=== PATIENT | male | born 1985 | race African-American/Black ===

== ENCOUNTER 2022-07-01 21:27 | Emergency (ER) | payer MEDICAID ==
[~2022-07-01] VITALS: Ht 195.6 cm; Wt 171.9 kg
[2022-07-01 21:59] VITALS: BP 160/102
--- NOTE | 2022-07-02 05:09 | NUR ---
Patient taken to bed 12.
--- NOTE | 2022-07-02 05:17 | NUR ---
Dr. Hussein examining patient.
[2022-07-02] MEDS ORDERED: KETOROLAC 30 MG/ML VIAL IM ONE (05:20)
[2022-07-02] MEDS ORDERED: diazePAM 5 MG TAB PO ONE (05:20)
--- NOTE | 2022-07-02 05:37 | NUR ---
PT TAKEN TO CT
[2022-07-02] MEDS ORDERED: NAPR-54 PO (07:35)
[2022-07-02] MEDS ORDERED: AMOX1TAB8 PO (07:35)
[2022-07-02] MEDS ORDERED: NYST15CR10 TP (07:40)
[2022-07-02 08:41] VITALS: BP 152/91
--- NOTE | 2022-07-02 08:44 | NUR ---
Patient discharged with v/s stable. Written and verbal after care instructions given and explained. Patient alert, oriented and verbalized understanding of instructions. Ambulatory with steady gait. All questions addressed prior to discharge. ID band removed. Patient advised to follow up with PMD. Rx of AUGMENTIN, NYSTATIN AND NAPROXEN given. Patient educated on indication of medication including possible reaction and side effects. Opportunity to ask questions provided and answered.
== END 2022-07-02 08:38 | disposition home or self-care (01) ==
LOC: MED 22:42
DX: R68.84 Jaw pain (principal)
CPT/HCPCS: 70486; 96372; 99285; J1885